=== PATIENT | male | born 1990 | race Caucasian/White ===

== ENCOUNTER 2017-01-20 14:19 | Emergency (ER) | payer BC ==
--- NOTE | ~2017-01-20 | CT98 ---
[facility], [place]. [facility] A Service of [facility] RADIOLOGY TEXT RESULTS PATIENT: CORBIN TATE LOCATION: SED : 86 UNIT #: [id number] AGE: [address]: Bao Cardoso MD SEX: M ORDER DR: [id number] [address] [address] [id number] E MR#: [id number] Acc #: [id number] NAME: CORBIN TATE : 1990 SEX: M STUDY DATE/TIME: 01/20/2017 14:19 UNIT: SED ROOM: STUDY DESCRIPTION: CT Lumbar Spine Wo Cont Attending Physician: Bao Cardoso M.D. Ordering Physician: Bao Cardoso M.D. Primary Care Physician: Von Yancey M.D. MEDICAL IMAGING REPORT This report is preliminary unless electronic signature is present. EXAM CT of the lumbar spine without contrast dated 01/20/2017. COMPARISON None. HISTORY Patient bent over today and felt sharp pain with muscle spasms and cramping. FINDINGS This CT exam was performed with one or more of the following radiation dose reduction techniques: Automatic exposure control, adjustment of mA and/or kV according to patient size, and iterative reconstruction. CT of the lumbar spine was obtained without contrast in the axial plane followed by sagittal and coronal reformats. Vertebral body and intervertebral disc heights are intact. Pre- and paravertebral soft tissues do not demonstrate any significant abnormality. There is a right central small protrusion, which appears to extend towards the right subarticular region. It barely touches the right S1 nerve root. No associated canal stenosis or neural foraminal narrowing. The other lower lumbar levels do not demonstrate any significant abnormality. Pre- and paravertebral soft tissues do not demonstrate any significant abnormality either. IMPRESSION 1. No acute fracture or subluxation. 2. Right central to subarticular small protrusion is at L5-S1, which barely touches the right S1 nerve root. [facility] A Service of [facility] RADIOLOGY TEXT RESULTS PATIENT: CORBIN TATE LOCATION: SED : [birth year] UNIT #: [id number] AGE: [address]: Bao Cardoso MD SEX: M ORDER DR: Dictated by... Michoacano Duran M.D. THIS IS AN ELECTRONICALLY VERIFIED REPORT Michoacano Duran M.D. at 01/21/2017 1:46 PM CPR/psc TD: 01/21/2017 00:53 JOB #: [id number] MEDICAL IMAGING REPORT Page 1 of 1
== END 2017-01-20 15:23 | disposition home or self-care (01) ==
LOC: SED 14:19
DX: M51.36 Other intervertebral disc degeneration, lumbar region (principal); F31.9 Bipolar disorder, unspecified; Z87.891 Personal history of nicotine dependence
CPT/HCPCS: 72131; 96372; 99284; J2360